=== PATIENT | female | born 1990 | race Caucasian/White ===

== ENCOUNTER 2025-05-10 09:13 | Outpatient (CLI) | payer OTHER | END 2025-05-10 09:14 | disposition home or self-care (01) | LOC: CSHSLEEP 09:13 | PROVIDERS: ATTEND Family Medicine | DX: G47.33 Obstructive sleep apnea (adult) (pediatric) (principal); G47.10 Hypersomnia, unspecified; R53.83 Other fatigue; R09.89 Other specified symptoms and signs involving the circulatory and respiratory systems; R41.89 Other symptoms and signs involving cognitive functions and awareness; F32.A Depression, unspecified; R06.83 Snoring; R35.1 Nocturia; I63.9 Cerebral infarction, unspecified; G47.31 Primary central sleep apnea | CPT/HCPCS: 95811 ==